=== PATIENT | male | born 1950 | race Hispanic/Latino ===

== ENCOUNTER → 2021-02-01 | Outpatient (CLI) | payer OTHER ==
[~2021-02-01] MED LIST: IOHEXOL-350 75 ML VIAL IV ONE; LISI20TA24 PO; OMEP20CA12 PO; SIMV-43 PO
== END | disposition home or self-care (01) ==
LOC: RAH 09:38
PROVIDERS: ATTEND Internal Medicine Cardiovascular Disease
DX: J90 Pleural effusion, not elsewhere classified (principal); I25.10 Atherosclerotic heart disease of native coronary artery without angina pectoris; N28.1 Cyst of kidney, acquired; K44.9 Diaphragmatic hernia without obstruction or gangrene; R18.8 Other ascites
CPT/HCPCS: 75574; Q9967

== ENCOUNTER → 2021-02-02 | Outpatient (CLI) | payer OTHER ==
[~2021-02-02] MED LIST changes: -IOHEXOL-350 75 ML VIAL IV ONE
== END | disposition home or self-care (01) ==
LOC: RAH 12:24
PROVIDERS: ATTEND Internal Medicine Cardiovascular Disease
DX: I08.1 Rheumatic disorders of both mitral and tricuspid valves (principal); Q21.0 Ventricular septal defect
CPT/HCPCS: 93306; 93356

== ENCOUNTER 2021-03-29 05:40 | Day surgery (SDC) | payer OTHER ==
[2021-03-27 11:52] LABS: BASOPHILS % (AUTO) 0.8 % (0.0-5.0); EOSINOPHILS % (AUTO) 1.1 % (0.0-8.0); HEMATOCRIT 43.9 % (42-54); LYMPHOCYTES % (AUTO) 23.2 % (21.0-51.0); MEAN CORPUSCULAR HEMOGLOBIN 31.6 pg (27.0-33.0); MEAN CORPUSCULAR HGB CONC 32.8 g/dL (32.0-36.0); MEAN CORPUSCULAR VOLUME 96.3 fL (79-99); MONOCYTES % (AUTO) 6.2 % (3.0-13.0); NEUTROPHILS % (AUTO) 68.4 % (40.0-77.0); PLATELET COUNT (AUTO) 110 K/uL (130-400); RED BLOOD CELL COUNT(AUTO) 4.56 MIL/uL (4.50-6.20); RED CELL DISTRIBUTION WIDTH 14.6 % (11.0-15.5); WHITE BLOOD COUNT (AUTO) 3.5 K/uL (4.8-10.8)
[2021-03-27 11:59] LABS: CREATININE 1.2 mg/dL (0.5-1.5)
[2021-03-27 12:02] LABS: INR 1.24 (0.85-1.15); PROTHROMBIN TIME 13.3 SEC (9.6-11.6)
[2021-03-27 12:03] LABS: PARTIAL THROMBOPLASTIN TIME 31.3 SEC (26.3-35.5)
[2021-03-28 10:24] VITALS: BP 104/65
[2021-03-29] VITALS (11 sets, daily range): BP systolic 78–94; BP diastolic 46–60
[~2021-03-29] VITALS: Ht 167.6 cm; Wt 71.1 kg
[~2021-03-29 05:40] MED LIST changes: +DAPA5TAB PO; +FURO40TA5 PO; -LISI20TA24 PO; +METO-408 PO; -OMEP20CA12 PO; +SACU1TAB PO; -SIMV-43 PO
[2021-03-29] MEDS ORDERED: 0.9%NACL 1000ML 1,000 ML IV ONE (07:02)
[2021-03-29] MEDS ORDERED: MIDAZOLAM HCL 1 MG/ML 2ML VIAL ONE (08:54)
[2021-03-29] MEDS ORDERED: FENTANYL CITRATE PF 50 MCG/1 ML 2ML VIAL ONE (08:55)
[2021-03-29] MEDS ORDERED: LIDOCAINE HCL 400MG/20ML VIAL ONE (12:05)
[2021-03-29] MEDS ORDERED: IOHEXOL-350 50ML VIAL IV ONE (12:07)
[2021-03-29] MEDS ORDERED: IOHEXOL 350 MG/ML 100ML INFUS..BTL IV ONE (12:07)
== END 2021-03-29 14:52 | disposition home or self-care (01) ==
LOC: DAH 05:40
PROVIDERS: ATTEND Internal Medicine Cardiovascular Disease
DX: I25.119 Atherosclerotic heart disease of native coronary artery with unspecified angina pectoris (principal); I25.82 Chronic total occlusion of coronary artery; I42.0 Dilated cardiomyopathy; I50.22 Chronic systolic (congestive) heart failure; Q24.9 Congenital malformation of heart, unspecified; R94.31 Abnormal electrocardiogram [ECG] [EKG]; I49.3 Ventricular premature depolarization; I45.10 Unspecified right bundle-branch block; Z79.82 Long term (current) use of aspirin; Z79.01 Long term (current) use of anticoagulants; Z98.890 Other specified postprocedural states
CPT/HCPCS: 36415; 80048; 85025; 85610; 85730; 93005; 93458; A4215; A4216; A4221; A4222; A4223 ×3; A4606; A4663; C1894 ×2; J1644; J2250; J3010; J3490; J7030; Q9965; Q9967 ×2; 99156; 99157

== ENCOUNTER 2021-05-31 05:40 | Observation (INO) | payer OTHER ==
[2021-05-29 10:33] LABS: HEMATOCRIT 41.5 % (42-54); LYMPHOCYTES % (AUTO) 20.3 % (21.0-51.0); MEAN CORPUSCULAR HEMOGLOBIN 30.8 pg (27.0-33.0); MEAN CORPUSCULAR VOLUME 96.1 fL (79-99); MONOCYTES % (AUTO) 6.8 % (3.0-13.0); NEUTROPHILS % (AUTO) 69.6 % (40.0-77.0); PLATELET COUNT (AUTO) 91 K/uL (130-400); RED BLOOD CELL COUNT(AUTO) 4.32 MIL/uL (4.50-6.20); RED CELL DISTRIBUTION WIDTH 15.1 % (11.0-15.5)
[2021-05-29 10:37] LABS: CREATININE 1.4 mg/dL (0.5-1.5); POTASSIUM 4.2 mmol/L (3.5-5.1)
[2021-05-29 10:41] LABS: INR 1.32 (0.85-1.15)
[2021-05-29 10:43] LABS: PARTIAL THROMBOPLASTIN TIME 31.3 SEC (26.3-35.5)
[2021-05-31] VITALS (11 sets, daily range): BP systolic 81–95; BP diastolic 49–64
[~2021-05-31] VITALS: Ht 180.3 cm; Wt 76.9 kg
[~2021-05-31 05:40] MED LIST changes: +ASPI-1443 PO; +ROSU20TA31 PO
[2021-05-31] MEDS ORDERED: 0.9%NACL 1000ML 1,000 ML IV ONE (06:11)
[2021-05-31] MEDS ORDERED: BUPIVACAINE/PF 0.25% 30ML VIAL IJ ONE ×2 (07:09→07:10)
[2021-05-31] MEDS ORDERED: LIDOCAINE HCL 1% MDV 50ML VIAL ONE (07:09)
[2021-05-31] MEDS ORDERED: IODIXANOL 320 MG/ML 100 ML VIAL ONE (07:09)
[2021-05-31] MEDS ORDERED: MIDAZOLAM HCL 1 MG/ML 2ML VIAL ONE ×2 (07:18→09:07)
[2021-05-31] MEDS ORDERED: MEPERIDINE-PF 25 MG/ML SYG ONE ×2 (07:19→09:08)
[2021-05-31] MEDS ORDERED: CEFAZOLIN SODIUM 1 GM VIAL IVP ONE (08:00)
[2021-05-31] MEDS ORDERED: 0.9%NACL 1000ML 1,000 ML IV SCH (08:00)
[2021-05-31] MEDS ORDERED: THROMBIN-JMI 5000 UNIT/VIAL TP ONE (09:59)
[2021-05-31] MEDS ORDERED: ACETAMINOPHEN WITH CODEINE 1 TAB TAB PO PRN (10:30)
[2021-05-31] MEDS ORDERED: ACET-2079 PO (10:37)
[2021-05-31] MEDS ORDERED: ONDANSETRON 4MG INJ ONE (15:41)
[2021-05-31] MEDS: FUROSEMIDE 40 MG TABLET PO SCH (21:00)
[2021-05-31] MEDS ORDERED: SACUBITRIL/VALSARTAN 1 EACH TABLET PO SCH (21:00)
[2021-05-31] MEDS ORDERED: ATORVASTATIN 40 MG TABLET PO SCH (21:00)
[2021-06-01 03:23] VITALS: BP 90/53
[2021-06-01 07:00] VITALS: BP 90/54
[2021-06-01] MEDS ORDERED: SACUBITRIL/VALSARTAN 1 EACH TABLET PO SCH (08:00)
[2021-06-01] MEDS: FUROSEMIDE 40 MG TABLET PO SCH (09:00)
[2021-06-01] MEDS ORDERED: ASPIRIN 81 MG EC TAB PO SCH (09:00)
[2021-06-01] MEDS ORDERED: METOPROLOL SUCCINATE 50 MG TAB.SR.24H PO SCH (09:00)
[2021-06-01] MEDS ORDERED: DAPAGLIFLOZIN PROPANEDIOL 5 MG PO SCH (09:00)
[2021-06-01] MEDS ORDERED: ONDANSETRON 4MG INJ ONE (09:17)
[2021-06-01] MEDS ORDERED: ONDANSETRON 4MG INJ IVP PRN (10:00)
[2021-06-01 11:00] VITALS: BP 92/58
[2021-06-01 12:18] LABS: HEMATOCRIT 33.6 % (42-54); MEAN CORPUSCULAR HEMOGLOBIN 31.5 pg (27.0-33.0); MEAN CORPUSCULAR HGB CONC 33.6 g/dL (32.0-36.0); MEAN CORPUSCULAR VOLUME 93.6 fL (79-99); RED BLOOD CELL COUNT(AUTO) 3.59 MIL/uL (4.50-6.20); RED CELL DISTRIBUTION WIDTH 15.5 % (11.0-15.5); WHITE BLOOD COUNT (AUTO) 5.9 K/uL (4.8-10.8)
== END 2021-06-01 15:25 | disposition home or self-care (01) ==
LOC: DAH 05:40 → DAHIP 05:41 → DAH 05:41 → INTOOBSV 05:41 → OBSVTOIN 05:41 → 2DH 17:05
PROVIDERS: ADMIT Internal Medicine Cardiovascular Disease; ATTEND Internal Medicine Cardiovascular Disease
DX: I25.5 Ischemic cardiomyopathy (principal); I50.22 Chronic systolic (congestive) heart failure; Z79.899 Other long term (current) drug therapy
CPT/HCPCS: 33225; 33249; 36415 ×2; 71045; 80048; 85025; 85027; 85610; 85730; 93005; A4215; A4221; A4222; A4223 ×3; A4554; A4606; A4663; A6258 ×2; A6402; C1769 ×3; C1882; C1895; C1896; C1900; G0378 ×30; G0379; J0690; J2175 ×2; J2250 ×2; J2405 ×2; J3490 ×4; J7030; 99156; 99157; Q9967

== ENCOUNTER 2021-08-02 20:22 | Emergency (ER) | payer OTHER ==
[~2021-08-02] VITALS: Ht 180.3 cm; Wt 88.5 kg
[~2021-08-02 20:22] MED LIST changes: -DAPA5TAB PO; -FURO40TA5 PO; +FURO40TA7 PO; -METO-408 PO; +METO25TA3 PO; +MIRT-93 PO; +Midodrine Hcl PO; -SACU1TAB PO
== END 2021-08-02 22:51 ==
LOC: EDH 20:22
DX: I46.9 Cardiac arrest, cause unspecified (principal); I50.9 Heart failure, unspecified; Z79.899 Other long term (current) drug therapy; Z79.82 Long term (current) use of aspirin; Z98.890 Other specified postprocedural states
CPT/HCPCS: 92950